=== PATIENT | female | born 1980 | race American Indian/Alaskan Native ===

== ENCOUNTER 2017-06-22 16:26 | Observation (INO) | payer MEDICAID, OTHER ==
[2017-06-22 16:40] VITALS: O2SAT 100
--- NOTE | 2017-06-22 17:14 | C.PDOC ---
History Of Present Illness <Jolene Moran - Last Filed: 06/22/17 18:52> <Clavin Robledo - Last Filed: 06/22/17 20:58> 36 y/o female presents to ED with c/o epigastric abdominal pain radiating to the back since yesterday. Patient reports pain has been persistent, and is worse after eating. Patient states she has had similar episode in the past but has not been evaluated. Denies surgical history. Notes LMP was 05/26/17. Otherwise, denies fever, chills, nausea, vomiting, diarrhea, urinary symptoms. (Jolene Moran) History Per: Patient History/Exam Limitations: no limitations Onset/Duration Of Symptoms: Days Current Symptoms Are (Timing): Still Present Location Of Pain/Discomfort: Epigastric Radiation Of Pain To:: Back Quality Of Discomfort: Burning, "Pain" Associated Symptoms: denies: Fever, Chills, Nausea, Vomiting, Diarrhea, Urinary Symptoms Recent travel outside of the [place]: No Abnormal Vaginal Bleeding: No <Jolene Moran - Last Filed: 06/22/17 18:52> <Calvin Robledo - Last Filed: 06/22/17 20:58> Time Seen by Provider: 06/22/17 17:01 Chief Complaint (Nursing): Abdominal Pain Past Medical History Reviewed: Historical Data, Nursing Documentation, Vital Signs - Medical History PMH: No Chronic Diseases Surgical History: No Surg Hx Family History: States: Unknown Family Hx - Social History Hx Alcohol Use: No Hx Substance Use: No <Jolene Moran - Last Filed: 06/22/17 18:52> Review Of Systems Except As Marked, All Systems Reviewed And Found Negative. Constitutional: Negative for: Fever, Chills Cardiovascular: Negative for: Chest Pain Respiratory: Negative for: Cough, Shortness of Breath, Wheezing Gastrointestinal: Positive for: Abdominal Pain. Negative for: Nausea, Vomiting , Diarrhea Musculoskeletal: Positive for: Back Pain Skin: Negative for: Rash Neurological: Negative for: Headache, Dizziness <Jolene Moran - Last Filed: 06/22/17 18:52> Physical Exam - Physical Exam Appears: Non-toxic, No Acute Distress Skin: Normal Color, Warm, Dry Head: Atraumatic, Normacephalic Oral Mucosa: Moist Chest: Symmetrical, No Tenderness Cardiovascular: Rhythm Regular Respiratory: Normal Breath Sounds, No Rales, No Rhonchi, No Wheezing Gastrointestinal/Abdominal: Soft, Tenderness (epigastric, RUQ), No Guarding, No Rebound Back: Normal Inspection Extremity: Normal ROM, Capillary Refill (< 2 sec.) Neurological/Psych: Oriented x3, Normal Speech, Normal Cognition <Jolene Moran - Last Filed: 06/22/17 18:52> ED Course And Treatment - Laboratory Results Result Diagrams: 06/22/17 18:25 06/22/17 18:25 ECG: Interpreted By Me ECG Rhythm: Sinus Rhythm Rate From EC (bpm) O2 Sat by Pulse Oximetry: 100 (RA) Pulse Ox Interpretation: Normal <Jolene Moran - Last Filed: 06/22/17 18:52> - Laboratory Results Result Diagrams: 06/22/17 18:25 06/22/17 18:25 <Calvin Robledo - Last Filed: 06/22/17 20:58> ED OBSERVATION Date of observation admission: 06/22/17 Time of observation admission: 16:45 <Jolene Moran - Last Filed: 06/22/17 18:52> <Calvin Robledo - Last Filed: 06/22/17 20:58> - Observation admission statement Patient is being placed in observation because:: ABD PAIN (Jolene Moran) - Goals of Observation Goals of observation are:: SX IMPROVE; NEG ACUTE ABD (Jolene Moran) - Progress Note Progress Note: 06/22/17 19:[address] cass [facility], dispo (Jolene Moran) Disposition <Jolene Moran - Last Filed: 06/22/17 18:52> Counseled Patient/Family Regarding: Diagnosis - Disposition Disposition Time: 20:58 - POA Present On Arrival: None <Calvin Robledo - Last Filed: 06/22/17 20:58> - Disposition Disposition: HOME/ ROUTINE Condition: STABLE - Clinical Impression Clinical Impression: Abdominal pain, Gastritis, Urinary tract infection, Diabetes mellitus - Scribe Statement The provider has reviewed the documentation as recorded by the Scribe <Jolene Moran - Last Filed: 06/22/17 18:52> <Calvin Robledo - Last Filed: 06/22/17 20:58> - Scribe Statement SM All medical record entries made by the Scribe were at my direction and personally dictated by me. I have reviewed the chart and agree that the record accurately reflects my personal performance of the history, physical exam, medical decision making, and the department course for this patient. I have also personally directed, reviewed, and agree with the discharge instructions and disposition. (Jolene Moran)
[2017-06-22] MEDS ORDERED: Sodium Chloride 0.9% 1,000 ML IV ONE (17:16)
--- NOTE | 2017-06-22 17:42 | C.PDOC ---
Time Seen by Provider: 06/22/17 17:01 Chief Complaint (Nursing): Abdominal Pain Past Medical History Vital Signs: Last Vital Signs Temp 99.1 F 06/22/17 16:37 Pulse 108 H 06/22/17 16:37 Resp 18 06/22/17 16:37 BP 121/85 06/22/17 16:37 Pulse Ox 100 06/22/17 16:37 - Social History Hx Alcohol Use: No Hx Substance Use: No ED Course And Treatment O2 Sat by Pulse Oximetry: 100 ED OBSERVATION Date of observation admission: 06/22/17 Time of observation admission: 16:45 - Observation admission statement Patient is being placed in observation because:: ABD PAIN - Goals of Observation Goals of observation are:: SX IMPROVE RO ACUTE ABD Disposition - Disposition Forms: [employer] ([place]ak[place])
[2017-06-22] MEDS ORDERED: Sodium Chloride 0.9% 1,000 ML ONE (18:27)
[2017-06-22 18:29] LABS: BASO % 0.2 % (0.0-2.0); EOS # 0.7 K/uL (0.0-0.7); EOS % 5.9 % (0.0-4.0); HEMATOCRIT 38.4 % (34.0-47.0); LYMPH # 2.7 K/uL (1.0-4.3); LYMPH % 23.7 % (20.0-40.0); MEAN CORPUSCULAR HEMOGLOBIN 28.1 pg (27.0-31.0); MEAN PLATELET VOLUME 7.6 fL (7.2-11.7); MONO # 0.4 K/uL (0.0-0.8); MONO % 3.6 % (0.0-10.0); RED CELL DISTRIBUTION WIDTH 13.5 % (11.5-14.5); WHITE BLOOD COUNT 11.3 K/uL (4.8-10.8)
[2017-06-22 18:32] LABS: RBC URINE 2 /hpf (0-3); URINE BILIRUBIN NEGATIVE (NEGATIVE); URINE BLOOD 1+ (NEGATIVE); URINE COLOR Straw (YELLOW); URINE GLUCOSE (UA) 1+ mg/dL (Normal); URINE KETONE NEGATIVE (NEGATIVE); URINE LEUKOCYTE ESTERASE 3+ Leu/uL (Negative); URINE PROTEIN NEGATIVE (NEGATIVE); URINE UROBILINOGEN NORMAL mg/dL (0.2-1.0); WBC URINE 24 /hpf (0-5)
[2017-06-22 18:38] LABS: CHLORIDE 98 mmol/L (98-107); POTASSIUM 3.9 mmol/L (3.6-5.2); SODIUM 136 mmol/L (132-148)
[2017-06-22 18:40] LABS: BILIRUBIN,TOTAL 0.5 mg/dL (0.2-1.3); GFR AFRICAN-AMERICAN > 60
[2017-06-22 18:41] LABS: ALB/GLOB RATIO 1.3 (1.0-2.1); ALKALINE PHOSPHATASE 89 U/L (38-126); ALT/SGPT 38 U/L (9-52); AST/SGOT 21 U/L (14-36); BLOOD UREA NITROGEN 8 mg/dL (7-17); CALCIUM 9.5 mg/dl (8.6-10.4); CARBON DIOXIDE 25 mmol/L (22-30); GLUCOSE,RANDOM 177 mg/dL (65-105); TOTAL PROTEIN 7.4 g/dL (6.3-8.3)
--- NOTE | 2017-06-22 19:37 | US ---
EXAM: US Abdomen Limited, Right Upper Quadrant EXAM DATE/TIME: Exam ordered 06/22/2017 6:03 PM CLINICAL HISTORY: 36 years old, female; Pain; Abdominal pain; Other: Ruq pain TECHNIQUE: Real-time ultrasound of the right upper quadrant with image documentation. COMPARISON: No relevant prior studies available. FINDINGS: Liver: The distal abdominal aorta is not seen due to bowel gas. Proximal and mid abdominal aorta show no evidence of aneurysm the liver measures 19 cm in craniocaudal span. The echotexture is coarsened. There is normal blood flow direction in the main portal vein. Gallbladder: Unremarkable. No gallstones. Common bile duct: The common bile duct measures 5 mm. No stones. No dilation. Pancreas: The pancreatic duct is mildly prominent measuring 0.36 cm in the body of the pancreas 2the pancreas. Right kidney: The right kidney measures 10.2 x 4 x 5.2 cm. No stones. No hydronephrosis. IMPRESSION: 1. The liver is enlarged and coarsened in echotexture. This suggests underlying infiltrative process such as fatty infiltration or fibrosis. It could also be related in part to technical factors 2. Pancreatic duct is mildly prominent at 0.36 cm . The significance is uncertain. The head and tail are not well-seen
[2017-06-22] MEDS ORDERED: Sucralfate 1 gm/10 ml Oral Susp UD PO STA (19:50)
[2017-06-22] MEDS ORDERED: Sucralfate 1 gm/10 ml Oral Susp UD ONE (20:01)
[2017-06-22 20:30] VITALS: BP 123/83; PULSE 80; RESP 20; TEMP 98.1
--- NOTE | 2017-06-26 15:57 | CARD ---
APPROVED REPORT EKG Measurement Heart [id number] <Conclusion> Normal sinus rhythm Normal ECG
== END 2017-06-22 20:56 | disposition home or self-care (01) ==
LOC: C.ER 16:26 → C.9OBSV 16:45
PROVIDERS: ADMIT Emergency Medicine; ATTEND Emergency Medicine
DX: K29.70 Gastritis, unspecified, without bleeding (principal); N39.0 Urinary tract infection, site not specified; E11.9 Type 2 diabetes mellitus without complications
CPT/HCPCS: 36415; 76705; 80053; 81001; 83690; 85025; 87086; 96360; 96374; G0378; J2270; J2405; J7040